=== PATIENT | male | born 1975 | race Two or more races ===

== ENCOUNTER → 2020-07-07 08:28 | Outpatient (BNVA) | payer OTHER, SELFPAY | PROVIDERS: Visit Provider Internal Medicine | DX: S62.606A Fracture of unspecified phalanx of right little finger, initial encounter for closed fracture (principal); W31.9XXA Contact with unspecified machinery, initial encounter | CPT/HCPCS: 99202 ==

== ENCOUNTER 2020-07-07 09:16 | Emergency (ER) | payer OTHER, SELFPAY ==
[2020-07-07 09:22] VITALS: BP 204/115; PULSE 83; RESP 16; TEMP 36.7; O2SAT 98; BMI 25.8
--- NOTE | 2020-07-07 09:24 | ED.RECABL ---
HPI - Recheck/Abnormal Lab/Rx General Chief Complaint: General Medical <MARIO Arreola Last Filed: 07/07/20 12:40> Stated Complaint: HBP <MARIO Arreola Last Filed: 07/07/20 12:40> Time Seen by Provider: 07/07/20 09:23 <MARIO Arreola Last Filed: 07/07/20 12:40> Source: patient <MARIO Arreola Last Filed: 07/07/20 12:40> Mode of arrival: ambulatory <MARIO Arreola Last Filed: 07/07/20 12:40> Limitations: no limitations <MARIO Arreola Last Filed: 07/07/20 12:40> History of Present Illness HPI narrative: 45 y/o male presenting with asymptomatic uncontrolled BP. He was sent to the ER from [facility] with BP 220/110. He denies any symptoms including chest pain, visual disturbances, headache. He was seen at [facility] last week for a crush injury to his finger and had surgery 5 days ago. Reportedly prior to surgery IV meds needed to be given to control his BP. 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 He has not picked up his antihypertensive medications since January. States his BP is always very high. <MARIO Arreola - Last Filed: 07/07/20 12:40> Related Data Home Medications: Previous Rx's Medication Instructions Recorded amlodipine [Norvasc] 10 mg PO DAILY #14 tab 07/07/20 metoprolol succinate [Toprol XL] 100 mg PO DAILY #14 tab 07/07/20 <MARIO Arreola Last Filed: 07/07/20 12:40> Allergies/Adverse Reactions: Allergies Allergy/AdvReac Type Severity Reaction Status Date / Time No Known Allergies Allergy Verified 07/07/20 09:37 <MARIO Arreola Last Filed: 07/07/20 12:40> Review of Systems Review of Systems: Constitutional: No Fever, No Chills ENT/Mouth: No sore throat, No Rhinorrhea, No Swallowing Difficulty Eyes: No Eye Pain, No Swelling, No Redness Cardiovascular: No Chest Pain, No SOB, No Orthopnea, No Edema Respiratory: No Cough, No Sputum, No Wheezing, No dyspnea Gastrointestinal: No Nausea, No Vomiting, No Diarrhea, No abdominal Pain, No Hematochezia, No Melena Genitourinary: No Dysuria, No Urinary Frequency, No Hematuria Musculoskeletal: No joint pain, No Myalgias Skin: No Skin Lesions, No rash Neuro: No Weakness, No Numbness, No Dizziness, No Headache Psych: No Anxiety/Panic, No Depression Heme/Lymph: No Bruising, No Lymphadenopathy Endocrine: No Polyuria, No Polydipsia <MARIO Arreola - Last Filed: 07/07/20 12:40> [facility] Past Medical History Attestation statement: The following information was validated with the patient. <MARIO Arreola - Last Filed: 07/07/20 12:40> Medical History: Medical History HTN (hypertension) <MARIO Arreola - Last Filed: 07/07/20 12:40> Social History Social History: Social History Alcohol intake: never Smoking Status: Current every day smoker Use of substances other than those prescribed or required for medical reasons: No Advance Directives: Yes Advance Directives Information Provided: No Advance Directives on File: No <MARIO Arreola - Last Filed: 07/07/20 12:40> Physical Exam Vital Signs: Vital Signs: Last Vital Signs Temp 98.1 F 07/07/20 09:22 Pulse 74 07/07/20 10:23 Resp 18 07/07/20 10:23 BP 193/118 H 07/07/20 10:52 Pulse Ox 99 07/07/20 10:23 Body Mass Index 25.8 Appearance: Alert. Oriented X3. No acute distress. Eyes: Pupils equal, round and reactive to light. ENT: Pharynx normal. Neck: Normal inspection. Neck supple. CVS: Normal heart rate and rhythm. Pulses normal. Respiratory: No respiratory distress. Breath sounds normal. Abdomen: Soft and nontender. +BS x4 Skin: Skin warm and dry. Normal skin color. Normal skin turgor. No rashes. Extremities: No lower extremity edema. Neuro: Oriented X 3. No motor deficit. No sensory deficit. <MARIO Arreola - Last Filed: 07/07/20 12:40> Vital Signs: Last Vital Signs Temp 98.1 F 07/07/20 09:22 Pulse 74 07/07/20 10:23 Resp 18 07/07/20 10:23 BP 193/118 H 07/07/20 10:52 Pulse Ox 99 07/07/20 10:23 Body Mass Index 25.8 <Medardo Tucker MD - Last Filed: 07/07/20 09:50> Course Course Course Narrative: 45 y/o male with longstanding history of hypertension (requiring 3 meds in the past) presenting with medication non-compliance and asymptomatic severe HTN. Off meds for 2+ weeks per patient however pharmacy was contacted and he has not filled his meds since January. Confirmed he was previously prescribed Toprol XL 100 mg and Norvasc 10 mg daily. He is currently refusing an IV. Agreeable to basic lab workup at this time. Will give his oral meds now and reassess. <MARIO Arreola - Last Filed: 07/07/20 12:40> I have discussed the case and management with the SRINI <Medardo Tucker MD - Last Filed: 07/07/20 09:50> Reevaluation(s) Reevaluation #1: Labs show BUN/Cr 17/1.25, unknown baseline. Urine with 2+ protein and 1+ blood. Results were discussed with the patient. Importance of close follow up and medication compliance were discussed. 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 Patient agrees to f/u with PCP this week. <MARIO Arreola - Last Filed: 07/07/20 12:40> MDM - Recheck/Abnormal Lab/Rx Lab Data Result diagrams: : 07/07/20 09:59 07/07/20 09:59 <MARIO Arreola - Last Filed: 07/07/20 12:40> Labs: Lab Results 07/07/20 07/07/20 07/07/20 Range/Units 09:58 09:59 09:59 WBC 7.8 (4.8-10.8) X10*3/uL RBC 5.28 (4.60-5.80) X10*6/uL Hgb 14.5 (14.0-18.0) g/dl Hct 44.6 (42-52) % MCV 84.5 (80-98) fL MCH 27.5 (27.0-33.0) pg MCHC 32.5 (31.0-36.0) g/dl RDW 13.2 (11.0-16.0) % Plt Count 182 (160-400) X10*3/uL MPV 10.2 (9.4-12.4) fL Immature Gran % (Auto) 0.3 (0.0-0.4) % Neut % (Auto) 78.3 H (45-73) % Lymph % (Auto) 14.2 L (20-40) % Sanders % (Auto) 4.9 (2-11) % Eos % (Auto) 1.9 (0-4) % Baso % (Auto) 0.4 (0-2) % Lymph # (Auto) 1.1 L (1.2-4.9) X10*3/uL Sanders # (Auto) 0.4 (0.1-1.2) X10*3/uL Eos # (Auto) 0.2 (0.0-0.4) X10*3/uL Baso # (Auto) 0.0 (0.0-0.2) X10*3/uL Abs Immat Gran (auto) 0.02 (0.00-0.03) X10*3/uL Absolute Neuts (auto) 6.1 (2.0-8.3) X10*3/uL Absolute Nucleated RBC 0.000 (0.0-0.012) X10*3/uL Nucleated RBC % (auto) 0.0 (0.0-0.2) /100WBC Sodium 139 (135-145) mmol/L Potassium 3.8 (3.3-5.1) mmol/l Chloride 101 (96-108) mmol/L Carbon Dioxide 30 H (22-29) mmol/L Anion Gap 12 (12-20) BUN 17 H (9-16) mg/dL Creatinine 1.25 (0.5-1.4) mg/dL Estim Creat Clear Calc 72.2 Estimated GFR > 60 Random Glucose 73 (60-115) mg/dL Calcium 9.2 (8.4-10.2) mg/dL Urine Color YELLOW Urine Appearance CLEAR Urine pH 7.0 (5.0-8.0) Ur Specific [place] 1.025 (1.005-1.025) Urine Protein 2+ H (NEG-TRACE) MG/DL Urine Glucose (UA) NEG (NEG) MG/DL Urine Ketones NEG (NEG) MG/DL Urine Blood 1+ H (NEG) Urine Nitrite NEG (NEG) Ur Leukocyte Esterase NEG (NEG) Urine RBC 5-9 H (0) /HPF Urine WBC 0-2 (0-4) /HPF Ur Squamous Epith Cells TRACE /LPF Urine Bacteria NONE /LPF Urine Mucus TRACE /LPF <MARIO Arreola - Last Filed: 07/07/20 12:40> Lab Results 07/07/20 07/07/20 07/07/20 Range/Units 09:58 09:59 09:59 WBC 7.8 (4.8-10.8) X10*3/uL RBC 5.28 (4.60-5.80) X10*6/uL Hgb 14.5 (14.0-18.0) g/dl Hct 44.6 (42-52) % MCV 84.5 (80-98) fL MCH 27.5 (27.0-33.0) pg MCHC 32.5 (31.0-36.0) g/dl RDW 13.2 (11.0-16.0) % Plt Count 182 (160-400) X10*3/uL MPV 10.2 (9.4-12.4) fL Immature Gran % (Auto) 0.3 (0.0-0.4) % Neut % (Auto) 78.3 H (45-73) % Lymph % (Auto) 14.2 L (20-40) % Sanders % (Auto) 4.9 (2-11) % Eos % (Auto) 1.9 (0-4) % Baso % (Auto) 0.4 (0-2) % Lymph # (Auto) 1.1 L (1.2-4.9) X10*3/uL Sanders # (Auto) 0.4 (0.1-1.2) X10*3/uL Eos # (Auto) 0.2 (0.0-0.4) X10*3/uL Baso # (Auto) 0.0 (0.0-0.2) X10*3/uL Abs Immat Gran (auto) 0.02 (0.00-0.03) X10*3/uL Absolute Neuts (auto) 6.1 (2.0-8.3) X10*3/uL Absolute Nucleated RBC 0.000 (0.0-0.012) X10*3/uL Nucleated RBC % (auto) 0.0 (0.0-0.2) /100WBC Sodium 139 (135-145) mmol/L Potassium 3.8 (3.3-5.1) mmol/l Chloride 101 (96-108) mmol/L Carbon Dioxide 30 H (22-29) mmol/L Anion Gap 12 (12-20) BUN 17 H (9-16) mg/dL Creatinine 1.25 (0.5-1.4) mg/dL Estim Creat Clear Calc 72.2 Estimated GFR > 60 Random Glucose 73 (60-115) mg/dL Calcium 9.2 (8.4-10.2) mg/dL Urine Color YELLOW Urine Appearance CLEAR Urine pH 7.0 (5.0-8.0) Ur Specific [place] 1.025 (1.005-1.025) Urine Protein 2+ H (NEG-TRACE) MG/DL Urine Glucose (UA) NEG (NEG) MG/DL Urine Ketones NEG (NEG) MG/DL Urine Blood 1+ H (NEG) Urine Nitrite NEG (NEG) Ur Leukocyte Esterase NEG (NEG) Urine RBC 5-9 H (0) /HPF Urine WBC 0-2 (0-4) /HPF Ur Squamous Epith Cells TRACE /LPF Urine Bacteria NONE /LPF Urine Mucus TRACE /LPF <Medardo Tucker MD - Last Filed: 07/07/20 09:50> Discharge Plan Discharge Clinical Impression: Poorly-controlled hypertension, Asymptomatic proteinuria <MARIO Arreola - Last Filed: 07/07/20 12:40> Patient Disposition: Home, Self-Care <MARIO Arreola - Last Filed: 07/07/20 12:40> Instructions: Low-Sodium Diet (ED), Hypertension (ED) <MARIO Arreola - Last Filed: 07/07/20 12:40> Additional Instructions: Your blood pressure was very elevated today while you were in the Emergency Department. You were given your blood pressure medications with some improvement. It is very important that you follow up with your doctor ZOHAIB for further management. You may require additional medications to help bring your blood pressure down. If you develop chest pain, headaches, vision changes call 911 or come <MARIO Arreola - Last Filed: 07/07/20 12:40> Prescriptions: New metoprolol succinate [Toprol XL] 100 mg tablet extended release 24 hr 100 mg PO DAILY Qty: 14 RF: 0 amlodipine [Norvasc] 10 mg tablet 10 mg PO DAILY Qty: 14 RF: 0 <MARIO Arreola - Last Filed: 07/07/20 12:40> Interventions: ED Discharge Assessment Last Done: 07/07/20 11:28 <MARIO Arreola - Last Filed: 07/07/20 12:40> Discharge Date/Time: 07/07/20 11:29 <MARIO Arreola - Last Filed: 07/07/20 12:40>
[2020-07-07 09:51] VITALS: BP 204/115; PULSE 83
[2020-07-07] MEDS: amLODIPine Besylate 10 MG TABLET PO (09:51)
[2020-07-07] MEDS: Metoprolol Succinate ER 100 MG TAB.ER.24H PO (09:51)
[2020-07-07 10:05] LABS: Basophils Percent Auto 0.4 % (0-2); Eosinophils Absolute Auto 0.2 X10*3/uL (0.0-0.4); Eosinophils Percent Auto 1.9 % (0-4); Hematocrit 44.6 % (42-52); Hemoglobin 14.5 g/dl (14.0-18.0); Imm Gran Abs Auto 0.02 X10*3/uL (0.00-0.03); Imm Gran Pct Auto 0.3 % (0.0-0.4); Lymphocytes Absolute Auto 1.1 X10*3/uL (1.2-4.9); Lymphocytes Percent Auto 14.2 % (20-40); Mean Corpuscular HGB Conc 32.5 g/dl (31.0-36.0); Mean Corpuscular Hemoglobin 27.5 pg (27.0-33.0); Mean Corpuscular Volume 84.5 fL (80-98); Mean Platelet Volume 10.2 fL (9.4-12.4); Monocytes Absolute Auto 0.4 X10*3/uL (0.1-1.2); Monocytes Percent Auto 4.9 % (2-11); Neutrophils Absolute Auto 6.1 X10*3/uL (2.0-8.3); Neutrophils Percent Auto 78.3 % (45-73); Platelet Count 182 X10*3/uL (160-400); Red Blood Count 5.28 X10*6/uL (4.60-5.80); Red Cell Distribution Width 13.2 % (11.0-16.0); White Blood Count 7.8 X10*3/uL (4.8-10.8)
[2020-07-07 10:06] LABS: Glucose Urine UA NEG (NEG); Leukocyte Esterase Urine NEG (NEG); Nitrite Urine NEG (NEG); Specific Gravity - Urine 1.025 (1.005-1.025); Urine Blood 1+ (NEG); Urine Ketones NEG (NEG); Urine Protein 2+ MG/DL (NEG-TRACE)
[2020-07-07 10:06] LABS: MANUAL DIFF FLAG NO
[2020-07-07 10:08] LABS: Appearance Urine CLEAR; Color Urine YELLOW
[2020-07-07 10:15] LABS: Mucus Urine TRACE /LPF; Squamous Epithelial Cell Urine TRACE /LPF; WBC Urine 0-2 /HPF (0-4)
[2020-07-07 10:23] VITALS: BP 208/126; PULSE 74; RESP 18; O2SAT 99
[2020-07-07 10:34] LABS: Anion Gap 12 (12-20); Blood Urea Nitrogen 17 mg/dL (9-16); Calcium 9.2 mg/dL (8.4-10.2); Carbon Dioxide 30 mmol/L (22-29); Chloride 101 mmol/L (96-108); Creatinine Clr Calc Pharmacy 72.2; Estimated Glomerular Filt Rate > 60; Glucose Random 73 mg/dL (60-115); Potassium 3.8 mmol/l (3.3-5.1); Sodium 139 mmol/L (135-145)
[2020-07-07 10:52] VITALS: BP 193/118
== END 2020-07-07 11:29 | disposition home or self-care (01) ==
PROVIDERS: Physician Assistant; Emergency Provider Emergency Medicine
DX: I10 Essential (primary) hypertension (principal); R80.9 Proteinuria, unspecified; Z79.899 Other long term (current) drug therapy; F17.200 Nicotine dependence, unspecified, uncomplicated; Z71.6 Tobacco abuse counseling
CPT/HCPCS: 36415; 80048; 81001; 85025; 99283; 99284

== ENCOUNTER 2021-12-09 08:40 | Emergency (ER) | payer OTHER, SELFPAY ==
[2021-12-09] VITALS (21 sets, daily range): BP systolic 163–233; BP diastolic 103–140; PULSE 100–133; RESP 26–40; TEMP 36.4–36.6; O2SAT 49–100; BMI 24.1
--- NOTE | ~2021-12-09 | XR_ITS ---
EXAMINATION: XR CHEST CLINICAL INFORMATION: Shortness of breath COMPARISON: None TECHNIQUE: Frontal view of the chest was obtained. FINDINGS: Commonly reported imaging features of Covid 19 or viral pneumonia are present with multifocal ill-defined infiltrates throughout the lungs. Other processes such as influenza pneumonia or organizing pneumonia, as can be seen with drug toxicity and connective tissue disease, can cause a similar imaging pattern. Neoplastic causes would be much less likely. The heart size is normal. No pleural effusions are seen. XR/XR chest 1V IMPRESSION: Multifocal pulmonary infiltrates as described above.
--- NOTE | 2021-12-09 08:45 | ECG_ITS ---
Test Reason : SOB Blood Pressure : / mmHG Vent. Rate : 110 BPM Atrial Rate : 110 BPM P-R Int : 156 ms QRS Dur : 088 ms QT Int : 368 ms P-R-T Axes : 075 040 149 degrees QTc Int : 498 ms Sinus tachycardia Left atrial enlargement Left ventricular hypertrophy ( Mak product ) Anteroseptal infarct , age undetermined Marked ST abnormality, possible inferolateral subendocardial injury Abnormal ECG No previous ECGs available Referred By: Bibi Penaloza Electronically Signed By:Devendra Lundberg
--- NOTE | 2021-12-09 08:51 | ED_ITS ---
HPI - SOB/Dyspnea General Chief Complaint: Upper Respiratory Symptoms Stated Complaint: WOKE UP WITH CP,78%RA, HR 30 PER EMS Time Seen by Provider: 12/09/21 08:45 Source: patient and EMS Mode of arrival: EMS Limitations: no limitations History of Present Illness HPI Narrative: 46-year-old male history of asthma woke up this morning with shortness of breath and hypoxia, patient declined chest pain, no fever, no chills. Patient had similar symptoms in the past twice patient declined intubation, patient quit smoking 2 months ago. On arrival to the emergency department patient is in acute respiratory distress , able to speak 3-4 word sentence, and hypoxic patient was placed on high-flow oxygen and bronchodilator with Solu-Medrol and magnesium. Patient declined chest pain but blood pressure noted to be very high he did not take his blood pressure meds today, patient also declines any recent use of drugs. Related Data Previous Rx's Medication Instructions Recorded amlodipine 10 mg tablet (Norvasc) 10 mg PO DAILY #14 tab 07/07/20 metoprolol succinate 100 mg 100 mg PO DAILY #14 tab 07/07/20 tablet,extended release 24 hr (Toprol XL) Allergies Allergy/AdvReac Type Severity Reaction Status Date / Time No Known Allergies Allergy Verified 07/07/20 09:37 Review of Systems Review of Systems: All other systems are reviewed and are negative Constitutional: Reports as per HPI and Reports no additional constitutional complaints Eyes: Reports as per HPI and Reports no additional eye complaints Reports system reviewed and no additional complaints, except as documented Cardiovascular: Reports as per HPI and Reports no additional cardiovascular complaints Respiratory: Reports as per HPI and Reports no additional respiratory complaints Gastrointestinal: Reports as per HPI and Reports no additional gastrointestinal complaints Genitourinary: Reports no additional female genitourinary complaints Musculoskeletal: Reports no additional musculoskeletal complaints Skin/Breast: Reports system reviewed and no additional complaints, except as docu Psychiatric: Reports no additional psychiatric complaints Endocrine: Reports no additional endocrine complaints Hematologic/Lymphatic: Reports no additional hematologic/lymphatic complaints Allergic/Immunologic: Reports no additional allergic/immunologic complaints Reports system reviewed and no additional complaints, except as documented and Reports Abnormal speech present [facility] Past Medical History Medical History COPD (chronic obstructive pulmonary disease) HTN (hypertension) Kidney disease Social History Social History Alcohol intake: never Advance Directives: No Advance Directives Information Provided: No Physical Exam Vital Signs: Vital Signs: Last Vital Signs Temp 98 F 12/09/21 08:47 Pulse 104 H 12/09/21 10:09 Resp 35 H 12/09/21 10:09 BP 209/127 H 12/09/21 10:09 Pulse Ox 97 12/09/21 10:09 Oxygen Flow Rate 6 12/09/21 08:47 BMI result Body Mass Index 24.1 Vital signs have been reviewed as appeared to be correct. Blood pressure normal. Heart rate normal. Tachypnea. Temperature normal. Oxygen saturation is 75% on room air. Appearance: Alert. Oriented X3. In acute respiratory distress. Head: Normal external exam. Normocephalic. Atraumatic. No Balderas signs noted. No raccoon eyes noted Eyes: PERRLA. EOMI. Conjunctiva and sclera normal. Eyelids normal. ENT: TM's Normal. Pharynx normal. Uvula midline. Moist mucous membranes. No trismus noted. No drooling noted. No muffled voice noted. Neck: Normal inspection. Neck supple. FROM. No adenopathy. Thyroid Normal. No meningeal signs. No neck mass noted. CVS: Normal heart rate and rhythm. Heart sound normal. No murmurs noted. Pulses normal throughout. Respiratory: In acute respiratory distress. Painless inspiration. Breath sounds normal. Diffuse expiratory wheezing with prolonged expiration bilateral rales. Chest nontender. No accessory muscle usage noted or decreased air movement noted. Abdomen: Soft and nontender. Bowel sounds normal in all 4 quadrants. No distention noted. No organomegaly noted. No visible injury noted. Back: No CVA tenderness. Full range of motion noted. Skin: Skin warm and dry. Normal skin color. Normal skin turgor. No rashes/lesions/lacerations noted. Extremities: No lower extremity edema. Extremities exhibit normal range of motion. Extremities nontender. Neuro: Oriented X 3. Cranial nerve exam: II-XII are grossly intact No motor deficit. No sensory deficit. Reflexes normal. Course Course Course Narrative: Assessment and plan. 46-year-old male came in with respiratory distress patient with history of asthma, known history of hypertension, known history of advanced chronic kidney disease. 1. Patient received bronchodilator/high-flow oxygen/BiPAP machine/magnes ium/Solu-Medrol and patient started feeling better. 2. Patient initially declined chest pain but more detailed history patient had some left-sided chest pain yesterday but not today, EKG is concerning of LVH with diffuse ST depression in the lateral leads but no lena ST elevation, the case discussed with Dr. Lundberg patient will be transferred to [facility] to CCU. But since patient had no chest pain and there is no lena ST elevation no cardiac catheterization at the moment. 3. Hypertensive emergency the best choice for this patient start him on nitro drip and diuresis. 4. X-ray concern of multilobar pneumonia patient was covered with double agent antibiotic. MDM - SOB/Dyspnea Lab Data Attestation: I reviewed the patient's lab results. Result diagrams: 12/09/21 08:54 12/09/21 08:54 Labs: Lab Results 12/09/21 12/09/21 12/09/21 Range/Units 08:53 08:54 08:54 WBC 15.1 H (4.8-10.8) X10*3/uL RBC 4.08 L (4.60-5.80) X10*6/uL Hgb 11.5 L (14.0-18.0) g/dl Hct 34.4 L (42.0-52.0) % MCV 84.3 (80.0-98.0) fL MCH 28.2 (27.0-33.0) pg MCHC 33.4 (31.0-36.0) g/dl RDW 12.7 (11.0-16.0) % Plt Count 465 H (160-400) X10*3/uL MPV 10.2 (9.4-12.4) fL Immature Gran % (Auto) 0.4 (0.0-0.4) % Neut % (Auto) 71.6 (45-73) % Lymph % (Auto) 22.4 (20-40) % [place] % (Auto) 3.8 (2-11) % Eos % (Auto) 1.3 (0-4) % Baso % (Auto) 0.5 (0-2) % Lymph # (Auto) 3.4 (1.2-4.9) X10*3/uL [place] # (Auto) 0.6 (0.1-1.2) X10*3/uL Eos # (Auto) 0.2 (0.0-0.4) X10*3/uL Baso # (Auto) 0.1 (0.0-0.2) X10*3/uL Abs Immat Gran (auto) 0.06 H (0.00-0.03) X10*3/uL Absolute Neuts (auto) 10.8 H (2.0-8.3) x10*3/uL Absolute Nucleated RBC 0.000 (0.0-0.012) X10*3/uL Nucleated RBC % (auto) 0.0 (0.0-0.2) /100WBC VBG pH (7.32-7.43) VBG pCO2 mmHg VBG pO2 mmHg VBG HCO3 (22-26) mmol/L VBG O2 Saturation % VBG Base Excess mmol/L Sodium 133 L (135-145) mmol/L Potassium 4.0 (3.3-5.1) mmol/L Chloride 92 L (96-108) mmol/L Carbon Dioxide 13 L (22-29) mmol/L Anion Gap 32 H (12-20) BUN 128 H (9-16) mg/dL Creatinine 18.31 H* (0.5-1.4) mg/dL Estim Creat Clear Calc 4.8 Estimated GFR 3 Random Glucose 226 H D (60-115) mg/dL Lactic Acid 6.2 H* (0.5-2.0) mmol/L Calcium 8.7 (8.4-10.2) mg/dL Magnesium 3.1 H (1.6-2.6) mg/dL Total Bilirubin 0.8 (0.0-1.0) mg/dL Direct Bilirubin 0.2 (0.0-0.5) mg/dL AST 26 (5-37) U/L ALT 30 (0-40) U/L Alkaline Phosphatase 80 (39-117) U/L Troponin I High Sens (<3.5-35.0) ng/L B-Natriuretic Peptide (<100) pg/mL Total Protein 6.9 (6.5-8.0) g/dL Albumin 4.1 (3.5-5.0) g/dL Lipase 110 H (8-78) U/L Influenza Type A (PCR) (Negative) Influenza Type B (PCR) (Negative) RSV RNA Qual (PCR) (Negative) SARS-CoV-2 RNA (RT-PCR) (Negative) 12/09/21 12/09/21 12/09/21 Range/Units 08:54 08:55 09:09 WBC (4.8-10.8) X10*3/uL RBC (4.60-5.80) X10*6/uL Hgb (14.0-18.0) g/dl Hct (42.0-52.0) % MCV (80.0-98.0) fL MCH (27.0-33.0) pg MCHC (31.0-36.0) g/dl RDW (11.0-16.0) % Plt Count (160-400) X10*3/uL MPV (9.4-12.4) fL Immature Gran % (Auto) (0.0-0.4) % Neut % (Auto) (45-73) % Lymph % (Auto) (20-40) % [place] % (Auto) (2-11) % Eos % (Auto) (0-4) % Baso % (Auto) (0-2) % Lymph # (Auto) (1.2-4.9) X10*3/uL [place] # (Auto) (0.1-1.2) X10*3/uL Eos # (Auto) (0.0-0.4) X10*3/uL Baso # (Auto) (0.0-0.2) X10*3/uL Abs Immat Gran (auto) (0.00-0.03) X10*3/uL Absolute Neuts (auto) (2.0-8.3) x10*3/uL Absolute Nucleated RBC (0.0-0.012) X10*3/uL Nucleated RBC % (auto) (0.0-0.2) /100WBC VBG pH 6.99 L* (7.32-7.43) VBG pCO2 55 mmHg VBG pO2 99 mmHg VBG HCO3 14 L (22-26) mmol/L VBG O2 Saturation 91.0 % VBG Base Excess -17.5 mmol/L Sodium (135-145) mmol/L Potassium (3.3-5.1) mmol/L Chloride (96-108) mmol/L Carbon Dioxide (22-29) mmol/L Anion Gap (12-20) BUN (9-16) mg/dL Creatinine (0.5-1.4) mg/dL Estim Creat Clear Calc Estimated GFR Random Glucose (60-115) mg/dL Lactic Acid (0.5-2.0) mmol/L Calcium (8.4-10.2) mg/dL Magnesium (1.6-2.6) mg/dL Total Bilirubin (0.0-1.0) mg/dL Direct Bilirubin (0.0-0.5) mg/dL AST (5-37) U/L ALT (0-40) U/L Alkaline Phosphatase (39-117) U/L Troponin I High Sens 6962.2 H* (<3.5-35.0) ng/L B-Natriuretic Peptide 3902 H (<100) pg/mL Total Protein (6.5-8.0) g/dL Albumin (3.5-5.0) g/dL Lipase (8-78) U/L Influenza Type A (PCR) NEGATIVE (Negative) Influenza Type B (PCR) NEGATIVE (Negative) RSV RNA Qual (PCR) NEGATIVE (Negative) SARS-CoV-2 RNA (RT-PCR) NEGATIVE (Negative) Imaging Data Chest x-ray: Attestation: I personally reviewed and interpreted this imaging study as follows: Radiologist's impression: Multifocal pulmonary infiltrates as described above. ? ECG Data Attestation: I personally reviewed and interpreted this ECG as follows: Interpretation: Sinus tachycardia at 110 beats per minute, LVH, diffuse ST depression in V4 V5 and V6. Critical Care Time Critical Care Time Critical Care Time: Yes Total Critical Care Time: 60 Attestation: I spent 60 minutes providing critical care service to the patient, this including time spent at the bedside to evaluate the patient, reassess the patient, monitoring vital signs, review labs, and radiographic studies, counseling the patient/family, discussing the case with consultants, disposition the patient. Discharge Plan Discharge Clinical Impression: Congestive heart failure, Hypertensive emergency, ACS (acute coronary syndrome), Chronic kidney failure, Pneumonia Patient Disposition: [facility] Hospital Transfer Details: CCU at [facility]. Prescriptions: No Action metoprolol succinate [Toprol XL] 100 mg tablet extended release 24 hr 100 mg PO DAILY Qty: 14 0RF amlodipine [Norvasc] 10 mg tablet 10 mg PO DAILY Qty: 14 0RF
[2021-12-09] MEDS: methylPREDNISolone Sod Succ 125 MG/2 ML VIAL IVPUSH (08:56)
[2021-12-09] MEDS: Magnesium Sulfate/H2O 2 GM/50 ML PIGGYBACK IV (08:57)
[2021-12-09 08:59] LABS: MANUAL DIFF FLAG NO
[2021-12-09 09:01] LABS: Basophils Absolute Auto 0.1 X10*3/uL (0.0-0.2); Basophils Percent Auto 0.5 % (0-2); Eosinophils Absolute Auto 0.2 X10*3/uL (0.0-0.4); Eosinophils Percent Auto 1.3 % (0-4); Hematocrit 34.4 % (42.0-52.0); Hemoglobin 11.5 g/dl (14.0-18.0); Imm Gran Abs Auto 0.06 X10*3/uL (0.00-0.03); Imm Gran Pct Auto 0.4 % (0.0-0.4); Lymphocytes Absolute Auto 3.4 X10*3/uL (1.2-4.9); Lymphocytes Percent Auto 22.4 % (20-40); Mean Corpuscular HGB Conc 33.4 g/dl (31.0-36.0); Mean Corpuscular Hemoglobin 28.2 pg (27.0-33.0); Mean Corpuscular Volume 84.3 fL (80.0-98.0); Mean Platelet Volume 10.2 fL (9.4-12.4); Monocytes Absolute Auto 0.6 X10*3/uL (0.1-1.2); Monocytes Percent Auto 3.8 % (2-11); Neutrophils Absolute Auto 10.8 x10*3/uL (2.0-8.3); Neutrophils Percent Auto 71.6 % (45-73); Platelet Count 465 X10*3/uL (160-400); Red Blood Count 4.08 X10*6/uL (4.60-5.80); Red Cell Distribution Width 12.7 % (11.0-16.0); White Blood Count 15.1 X10*3/uL (4.8-10.8)
[2021-12-09] MEDS: Albuterol Sulfate (0.083%) 2.5 MG/3 ML VIAL.NEB 7.5 MG INHALE (09:06)
[2021-12-09 09:17] LABS: Lactic Acid 6.2 mmol/L (0.5-2.0)
[2021-12-09 09:19] LABS: VBG Base Excess -17.5 mmol/L; VBG HCO3 14 mmol/L (22-26); VBG pCO2 55 mmHg; VBG pH 6.99 (7.32-7.43); VBG pO2 99 mmHg
[2021-12-09 09:19] LABS: Venous Blood Gas Refer to POC result
[2021-12-09 09:41] LABS: Alanine Aminotransferase 30 U/L (0-40); Albumin Level 4.1 g/dL (3.5-5.0); Alkaline Phosphatase 80 U/L (39-117); Anion Gap 32 (12-20); Aspartate Amino Transferase 26 U/L (5-37); B Type Natriuretic Peptide 3902 pg/mL (<100); Bilirubin Direct 0.2 mg/dL (0.0-0.5); Bilirubin Total 0.8 mg/dL (0.0-1.0); Calcium 8.7 mg/dL (8.4-10.2); Carbon Dioxide 13 mmol/L (22-29); Chloride 92 mmol/L (96-108); Glucose Random 226 mg/dL (60-115); Lipase 110 U/L (8-78); Magnesium 3.1 mg/dL (1.6-2.6); Sodium 133 mmol/L (135-145); Total Protein 6.9 g/dL (6.5-8.0)
[2021-12-09] MEDS: Furosemide 40 MG/4 ML VIAL IVPUSH (09:49)
[2021-12-09] MEDS: Nitroglycerin 2 % Oint 1 GM Packet 1 INCH TRANSDERMA (09:50)
[2021-12-09 09:55] LABS: Blood Urea Nitrogen 128 mg/dL (9-16); Creatinine Clr Calc Pharmacy 4.8; Estimated Glomerular Filt Rate 3
[2021-12-09 10:02] LABS: Influenza A PCR NEGATIVE (Negative); Influenza B PCR NEGATIVE (Negative); Resp Syncy Virus RNA Qual PCR NEGATIVE (Negative); SARS COV2 PCR INHOUSE NEGATIVE (Negative)
[2021-12-09] MEDS: cefTRIAXone sodium 1 GM in 0.9 % Sodium Chloride 50 ML IV (10:03)
--- NOTE | 2021-12-09 10:11 | PC.NURSE ---
pt appears more comfortable. voided 200ml clear urine.Ex- at bedside. Desktop Support Manager called
--- NOTE | 2021-12-09 10:18 | PC.NURSE ---
@ 10:17AM DR BOND REQUEST CALL OUT TO INTERVENTIONAL RADIOLOGY @ [facility] STAT PAGER USED [phone]# TO [phone]#
--- NOTE | 2021-12-09 10:21 | PC.NURSE ---
@ 10:21AM RETURN CALL FROM [facility] DUE TO STAT PAGE DR BOND TAKES OVER CALL RIGHT AWAY
--- NOTE | 2021-12-09 10:40 | PC.NURSE ---
[facility] BED MANAGEMENT CALLS TO FIND OUT THIS PT COVID STATUS @ THIS TIME MADE THEM AWARE THAT THIS PT IS COVID NEGATIVE
[2021-12-09 10:45] LABS: Appearance Urine CLEAR; Color Urine YELLOW; Leukocyte Esterase Urine NEG (NEG); Nitrite Urine NEG (NEG); Specific Gravity - Urine 1.015 (1.005-1.025); UACC Culture Trigger NO; Urine Blood 3+ (NEG); Urine Ketones NEG (NEG); Urine Protein 2+ MG/DL (NEG-TRACE)
[2021-12-09] MEDS: Nitroglycerin/D5W 100 MG/250 ML INFUS..BTL IVCONT (10:49)
[2021-12-09] MEDS: Azithromycin 500 MG in 0.9 % Sodium Chloride 250 ML 125 MG IV (10:49)
[2021-12-09 10:59] LABS: Reflex Lactate? Lactic Acid Added
--- NOTE | 2021-12-09 11:04 | HO.SEPSISX_ITS ---
Sepsis Bolus Exclusion Sepsis Bolus Exclusion This patient met severe sepsis criteria due to the following condition(s):: Lact ate>=4mmol/L In my clinical judgement the administration of 30 ml/kg of crystalloid would be detrimental to this patient due to the patient's following conditions:: Stage III or IV Chronic Kidney Disease (GFR<30) and Concern for fluid overload Replace the 30 mls/kg with (*zero amount not acceptable): *Note: One of the higgins must be documented Crystalloids amount given in mls:: 20
[2021-12-09 11:06] LABS: Glucose Urine UA NEG (NEG)
--- NOTE | 2021-12-09 11:08 | PC.NURSE ---
[facility] PT TX LINE CALLS WITH ROOM ASSIGNMENT @ THIS TIME [facility], M3, ROOM 8 RN TO RN TO BE CALLED TO: [phone]
[2021-12-09] MEDS: Aspirin Enteric Coated 81 MG TABLET.DR PO (11:12)
[2021-12-09 11:14] LABS: Squamous Epithelial Cell Urine 1+ /LPF
[2021-12-09 11:15] LABS: Bacteria Urine 1+ /LPF
--- NOTE | 2021-12-09 11:20 | PC.NURSE ---
attempted to call rn to rn, per BULL DRIVER hortencia Dunn RN is unavailable. Contact will be be made in 10 minutes
[2021-12-09 11:40] LABS: ~Lactic Acid-LAB USE ONLY 1.1 mmol/L (0.5-2.0)
[2021-12-09 14:23] LABS: Amphetamine Screen Urine Not Detected (Not Detect); Barbiturates, Urine Not Detected (Not Detect); Benzodiazepines Screen Urine Not Detected (Not Detect); Cannabinoid Screen Urine Not Detected (Not Detect); Cocaine Screen Urine POSITIVE (Not Detect); Fentanyl, urine Not Detected (Not Detect); Opiate Screen Urine Not Detected (Not Detect); Phencyclidine Screen Urine Not Detected (Not Detect)
== END 2021-12-09 14:38 | disposition short-term general hospital (02) ==
PROVIDERS: Emergency Provider Emergency Medicine; PCP Nurse Practitioner Family
DX: J18.9 Pneumonia, unspecified organism (principal); I50.9 Heart failure, unspecified; I16.0 Hypertensive urgency; I24.9 Acute ischemic heart disease, unspecified; Z20.822 Contact with and (suspected) exposure to COVID-19; Z79.899 Other long term (current) drug therapy
CPT/HCPCS: 0241U; 36415; 71045; 80048; 80076; 80307; 81001; 82803; 83605; 83690; 83735; 83880; 84484; 85025; 87040; 93005; 94640; 94644; 94660; 96365; 96366; 96367; 96375; 99285; 99291; J0456; J0696; J1940; J2930; J3475